=== PATIENT | male | born 1990 | race African-American/Black ===

== ENCOUNTER 2017-02-05 16:06 | Emergency (ER) | payer MEDICARE, MEDICAID ==
[~2017-02-05] VITALS: Ht 180.3 cm; Wt 122.7 kg
[~2017-02-05 16:06] MED LIST: PALI234D IM; PALI3 PO
[2017-02-05] MEDS ORDERED: CITA10TA68 PO (16:15)
[2017-02-05 16:56] LABS: BASOPHILS % (AUTO) 0.4 % (0.0-2.0); EOSINOPHILS % (AUTO) 1.5 % (1.0-6.0); HEMATOCRIT 43.6 % (41-53); HEMOGLOBIN 14.2 g/dL (13.5-17.5); LYMPHOCYTES # (AUTO) 2.1 K/uL (1.0-4.8); LYMPHOCYTES % (AUTO) 15.2 % (22.0-44.0); MEAN CORPUSCULAR HEMOGLOBIN 29.6 pg (26.0-34.0); MEAN CORPUSCULAR HGB CONC 32.6 G/dL (31.0-37.0); MEAN CORPUSCULAR VOLUME 91 fL (80-100); MONOCYTES # (AUTO) 0.8 K/uL (0.1-1.0); MONOCYTES % (AUTO) 5.4 % (2.0-9.0); NEUTROPHILS # (AUTO) 10.9 K/uL (1.8-7.7); NEUTROPHILS % (AUTO) 77.5 % (40.0-70.0); PLATELET COUNT (AUTO) 355 K/uL (150-450); RED CELL DISTRIBUTION WIDTH 13.2 % (11.5-14.5); WHITE BLOOD COUNT (AUTO) 14.1 K/uL (4.5-11.0)
[2017-02-05 17:21] LABS: ANION GAP 9 mmol/L (8-16); CALCIUM, TOTAL 8.9 mg/dL (8.8-10.5); CARBON DIOXIDE 25 mmol/L (22-29); CHLORIDE 100 mmol/L (98-107); CREATININE 0.97 mg/dL (0.60-1.30); GLOMERULAR FILTR. RATE CALC > 60 mL/min (>60); POTASSIUM 3.5 mmol/L (3.5-5.1); SODIUM SERUM 134 mmol/L (136-145); UREA NITROGEN, BLOOD 10 mg/dL (7-18)
[2017-02-05 19:22] VITALS: BP 127/85
[2017-02-05] MEDS ORDERED: RisperiDONE 1 MG TABLET PO ONE (19:45)
== END 2017-02-05 19:44 | disposition home or self-care (01) ==
LOC: EMS 16:08
DX: F25.9 Schizoaffective disorder, unspecified (principal); R44.0 Auditory hallucinations; F31.9 Bipolar disorder, unspecified; F41.9 Anxiety disorder, unspecified; I10 Essential (primary) hypertension; F12.90 Cannabis use, unspecified, uncomplicated; F17.210 Nicotine dependence, cigarettes, uncomplicated; Z91.018 Allergy to other foods
CPT/HCPCS: 36415; 80048; 80307; 85025; 99284; 99406; G0480

== ENCOUNTER 2017-06-02 23:42 | Emergency (ER) | payer SELFPAY ==
[~2017-06-02] VITALS: Ht 177.8 cm; Wt 86.4 kg
[~2017-06-02 23:42] MED LIST changes: +CITA20TA9 PO; -PALI234D IM; -PALI3 PO; +RISP2 PO
[2017-06-03] MEDS ORDERED: RisperiDONE 1 MG TABLET PO ONE (00:30)
[2017-06-03 01:29] VITALS: BP 127/83
== END 2017-06-03 01:35 | disposition home or self-care (01) ==
LOC: EMS 23:43
DX: F25.1 Schizoaffective disorder, depressive type (principal); F17.210 Nicotine dependence, cigarettes, uncomplicated; F12.10 Cannabis abuse, uncomplicated; I10 Essential (primary) hypertension; F41.9 Anxiety disorder, unspecified; Z91.018 Allergy to other foods
CPT/HCPCS: 99284

== ENCOUNTER 2017-09-13 02:51 | Inpatient (IN) | payer SELFPAY ==
[~2017-09-13] VITALS: Ht 182.9 cm; Wt 128.7 kg
[2017-09-13] MEDS ORDERED: ZIPR20CA2 PO (02:58)
[2017-09-13 03:23] LABS: BASOPHILS # (AUTO) 0.05 K/uL (0.00-0.20); BASOPHILS % (AUTO) 0.6 % (0.0-2.0); EOSINOPHILS # (AUTO) 0.61 K/uL (0.00-0.70); HEMATOCRIT 44.5 % (41-53); HEMOGLOBIN 14.9 g/dL (13.5-17.5); LYMPHOCYTES % (AUTO) 34.5 % (22.0-44.0); MEAN CORPUSCULAR HEMOGLOBIN 30.6 pg (26.0-34.0); MEAN CORPUSCULAR HGB CONC 33.4 G/dL (31.0-37.0); MEAN CORPUSCULAR VOLUME 92 fL (80-100); MONOCYTES # (AUTO) 0.9 K/uL (0.1-1.0); MONOCYTES % (AUTO) 10.2 % (2.0-9.0); NEUTROPHILS # (AUTO) 4.2 K/uL (1.8-7.7); NEUTROPHILS % (AUTO) 47.8 % (40.0-70.0); PLATELET COUNT (AUTO) 348 K/uL (150-450); RED BLOOD CELL COUNT(AUTO) 4.85 MIL/uL (4.50-5.90)
[2017-09-13 03:27] LABS: ANION GAP 8 mmol/L (8-16); CALCIUM, TOTAL 8.4 mg/dL (8.8-10.5); CARBON DIOXIDE 31 mmol/L (22-29); CHLORIDE 103 mmol/L (98-107); CREATININE 0.86 mg/dL (0.60-1.30); GLOMERULAR FILTR. RATE CALC > 60 mL/min (>60); GLUCOSE,RANDOM 83 mg/dL (70-110); SODIUM SERUM 142 mmol/L (136-145); UREA NITROGEN, BLOOD 13 mg/dL (7-18)
[2017-09-13 03:35] LABS: ALANINE AMINOTRANSFERASE 55 U/L (12-78); ALBUMIN 3.5 g/dL (3.4-5.0); ALKALINE PHOSPHATASE 66 U/L (46-116); ASPARTATE AMINOTRANSFERASE 46 U/L (15-37); BILIRUBIN,TOTAL 0.4 mg/dL (0.1-1.0); TOTAL PROTEIN, SERUM 7.7 g/dL (6.4-8.2)
[2017-09-13] MEDS ORDERED: HALOPERIDOL 5 MG TABLET PO PRN (09:15)
[2017-09-13] MEDS: ZIPRASIDONE HCL 20 MG CAPSULE PO SCH (18:21)
[2017-09-14 03:00] LABS: AMPHET/METH SCREEN,URINE NEGATIVE (NEGATIVE); BARBITURATE SCREEN, URINE NEGATIVE (NEGATIVE); BENZODIAZEPINES SCREEN,URINE NEGATIVE (NEGATIVE); CANNABINOID SCREEN,URINE POSITIVE (NEGATIVE); COCAINE SCREEN,URINE NEGATIVE (NEGATIVE); METHADONE SCREEN, URINE NEGATIVE (NEGATIVE); OPIATE SCREEN,URINE NEGATIVE (NEGATIVE)
[2017-09-14 03:11] LABS: PHENCYCLIDINE SCREEN,URINE NEGATIVE (NEGATIVE)
[2017-09-14] MEDS: ZIPRASIDONE HCL 20 MG CAPSULE PO SCH ×2 (08:47→17:24)
[2017-09-14] MEDS: CITALOPRAM HYDROBROMIDE 20 MG TABLET PO SCH (09:00)
[2017-09-14 09:31] VITALS: BP 138/79
[2017-09-14 10:02] VITALS: BP 138/79
[2017-09-14 10:12] LABS: CHOL/HDL RATIO 2.4 (4.2-7.3)
[2017-09-14] MEDS ORDERED: INFLUENZA VIRUS VACCINE QVS 2017-18 (3YR+)/PF 60 MCG/0.5 ML SYRINGE IM ONE (14:00)
[2017-09-14 19:08] VITALS: BP 126/79
[2017-09-14] MEDS: ZOLPIDEM TARTRATE 10 MG TABLET PO PRN (23:39)
[2017-09-14] MEDS: LORazepam 2 MG TABLET PO PRN (23:39)
[2017-09-15] MEDS ORDERED: DiphenhydrAMINE HCL 50 MG/ML VIAL IM PRN
[2017-09-15] MEDS ORDERED: LORazepam 2 MG/ML VIAL IM PRN
[2017-09-15 01:46] VITALS: BP 141/87
[2017-09-15] MEDS ORDERED: IBUPROFEN 600 MG TABLET PO PRN (06:45)
[2017-09-15] MEDS ORDERED: ONDANSETRON HCL 4 MG TABLET PO PRN (06:45)
[2017-09-15] MEDS ORDERED: ACETAMINOPHEN 325 MG TABLET PO PRN (06:45)
[2017-09-15] MEDS ORDERED: LOPERAMIDE HCL 2 MG CAPSULE PO PRN (06:45)
[2017-09-15] MEDS ORDERED: MAG HYDROX/AL HYDROX/SIMETH ES 30 ML SUSPENSION UDCUP PO PRN (06:45)
[2017-09-15] MEDS ORDERED: BENZOCAINE/MENTHOL LOZENGE MM PRN (06:45)
[2017-09-15] MEDS ORDERED: ALBUTEROL SULFATE HFA 90 MCG/PUFF 8 GM INHALER IH PRN (06:45)
[2017-09-15] MEDS ORDERED: MAGNESIUM HYDROXIDE SUSPENSION 30 ML UDCUP PO PRN (06:45)
[2017-09-15] MEDS ORDERED: CloNIDine HCL 0.1 MG TABLET PO PRN (06:45)
[2017-09-15] MEDS ORDERED: BACITRACIN 28.4 GM OINTMENT TP PRN (06:45)
[2017-09-15] MEDS ORDERED: PETROLATUM,WHITE 71 GM JELLY TP PRN (06:45)
[2017-09-15] MEDS: ZIPRASIDONE HCL 20 MG CAPSULE PO SCH ×2 (06:47→17:02)
[2017-09-15] MEDS: CITALOPRAM HYDROBROMIDE 20 MG TABLET PO SCH (08:41)
[2017-09-15] MEDS: NICOTINE 21 MG/24 HOUR PATCH TD SCH ×2 (08:43→08:46)
[2017-09-15] MEDS ORDERED: OLANZapine 5 MG TABLET PO SCH (09:00)
[2017-09-15 09:29] VITALS: BP 136/97
[2017-09-15 16:26] VITALS: BP 147/94
[2017-09-15] MEDS: ZOLPIDEM TARTRATE 10 MG TABLET PO PRN (21:37)
[2017-09-15] MEDS: LORazepam 2 MG TABLET PO PRN (21:37)
[2017-09-16 05:52] VITALS: BP 133/78
[2017-09-16] MEDS: ZIPRASIDONE HCL 20 MG CAPSULE PO SCH (06:44)
[2017-09-16 08:24] VITALS: BP 109/74
[2017-09-16] MEDS: CITALOPRAM HYDROBROMIDE 20 MG TABLET PO SCH (08:25)
[2017-09-16] MEDS: NICOTINE 21 MG/24 HOUR PATCH TD SCH (09:00)
[2017-09-17 04:08] LABS: HIV 1-2 SCREEN 4TH GEN W/RFLX Non Reactive (Non Reactive)
== END 2017-09-16 16:45 | disposition home or self-care (01) | DRG 885 ==
LOC: EMS 02:52 → AHU 09-14 08:47 → 3EC 09-14 20:10
DX: F25.1 Schizoaffective disorder, depressive type (principal); R45.851 Suicidal ideations; Z59.0 Homelessness; E66.9 Obesity, unspecified; E78.5 Hyperlipidemia, unspecified; F12.90 Cannabis use, unspecified, uncomplicated; F17.200 Nicotine dependence, unspecified, uncomplicated; F41.9 Anxiety disorder, unspecified; G47.00 Insomnia, unspecified; I10 Essential (primary) hypertension; Z65.3 Problems related to other legal circumstances; Z79.899 Other long term (current) drug therapy; Z71.6 Tobacco abuse counseling; Z71.51 Drug abuse counseling and surveillance of drug abuser; Z91.018 Allergy to other foods
CPT/HCPCS: 80074; 86592; 87389; 87491; 87591; 99285; G0480

== ENCOUNTER 2017-09-17 10:06 | Inpatient (IN) | payer SELFPAY ==
[~2017-09-17] VITALS: Ht 182.9 cm; Wt 130.9 kg
[~2017-09-17 10:06] MED LIST changes: -RISP2 PO; +ZIPR20CA2 PO
[2017-09-17 11:36] VITALS: BP 135/79
[2017-09-17] MEDS ORDERED: HALOPERIDOL 5 MG TABLET PO PRN (12:00)
[2017-09-17] MEDS ORDERED: -PHARMACY VACCINE NOTE- MISC ONE (12:30)
[2017-09-17 13:18] VITALS: BP 140/88
[2017-09-17] MEDS: CITALOPRAM HYDROBROMIDE 20 MG TABLET PO SCH ×2 (14:02→17:15)
[2017-09-17] MEDS: LORazepam 2 MG TABLET PO PRN (14:10)
[2017-09-17 16:00] VITALS: BP 132/84
[2017-09-17] MEDS ORDERED: ZIPRASIDONE HCL 40 MG CAPSULE PO SCH (17:00)
[2017-09-17] MEDS ORDERED: CITALOPRAM HYDROBROMIDE 20 MG TABLET PO SCH (17:00)
[2017-09-17] MEDS: ZIPRASIDONE HCL 40 MG CAPSULE PO SCH (17:16)
[2017-09-18 00:05] VITALS: BP 137/78
[2017-09-18] MEDS: ZIPRASIDONE HCL 40 MG CAPSULE PO SCH ×2 (06:28→16:08)
[2017-09-18 08:07] VITALS: BP 124/72
[2017-09-18 08:14] LABS: BASOPHILS % (AUTO) 1.1 % (0.0-2.0); EOSINOPHILS % (AUTO) 8.4 % (1.0-6.0); HEMATOCRIT 42.6 % (41-53); HEMOGLOBIN 14.5 g/dL (13.5-17.5); LYMPHOCYTES # (AUTO) 3.9 K/uL (1.0-4.8); LYMPHOCYTES % (AUTO) 47.8 % (22.0-44.0); MEAN CORPUSCULAR HEMOGLOBIN 31.3 pg (26.0-34.0); MEAN CORPUSCULAR HGB CONC 34.2 G/dL (31.0-37.0); MEAN CORPUSCULAR VOLUME 92 fL (80-100); MONOCYTES # (AUTO) 0.6 K/uL (0.1-1.0); MONOCYTES % (AUTO) 7.5 % (2.0-9.0); NEUTROPHILS # (AUTO) 2.8 K/uL (1.8-7.7); NEUTROPHILS % (AUTO) 35.2 % (40.0-70.0); PLATELET COUNT (AUTO) 335 K/uL (150-450); RED BLOOD CELL COUNT(AUTO) 4.65 MIL/uL (4.50-5.90); RED CELL DISTRIBUTION WIDTH 14.3 % (11.5-14.5)
[2017-09-18] MEDS ORDERED: MAGNESIUM HYDROXIDE SUSPENSION 30 ML UDCUP PO PRN (08:30)
[2017-09-18] MEDS ORDERED: BACITRACIN 28.4 GM OINTMENT TP PRN (08:30)
[2017-09-18] MEDS ORDERED: BENZOCAINE/MENTHOL LOZENGE MM PRN (08:30)
[2017-09-18] MEDS ORDERED: MAG HYDROX/AL HYDROX/SIMETH ES 30 ML SUSPENSION UDCUP PO PRN (08:30)
[2017-09-18] MEDS ORDERED: ALBUTEROL SULFATE HFA 90 MCG/PUFF 8 GM INHALER IH PRN (08:30)
[2017-09-18] MEDS ORDERED: CloNIDine HCL 0.1 MG TABLET PO PRN (08:30)
[2017-09-18] MEDS ORDERED: ACETAMINOPHEN 325 MG TABLET PO PRN (08:30)
[2017-09-18] MEDS ORDERED: LOPERAMIDE HCL 2 MG CAPSULE PO PRN (08:30)
[2017-09-18] MEDS ORDERED: PETROLATUM,WHITE 71 GM JELLY TP PRN (08:30)
[2017-09-18] MEDS ORDERED: ONDANSETRON HCL 4 MG TABLET PO PRN (08:30)
[2017-09-18 08:48] LABS: ALANINE AMINOTRANSFERASE 42 U/L (12-78); ALBUMIN 3.2 g/dL (3.4-5.0); ALKALINE PHOSPHATASE 56 U/L (46-116); ANION GAP 6 mmol/L (8-16); ASPARTATE AMINOTRANSFERASE 33 U/L (15-37); BILIRUBIN,TOTAL 0.4 mg/dL (0.1-1.0); CALCIUM, TOTAL 8.5 mg/dL (8.8-10.5); CARBON DIOXIDE 29 mmol/L (22-29); CHLORIDE 102 mmol/L (98-107); CHOL/HDL RATIO 2.3 (4.2-7.3); CHOLESTEROL 95 mg/dL (131-200); FREE T4 (FREE THYROXINE) 0.88 ng/dL (0.76-1.46); GLOMERULAR FILTR. RATE CALC > 60 mL/min (>60); GLUCOSE,RANDOM 92 mg/dL (70-110); HDL CHOLESTEROL 42 mg/dL (40-60); LDL CHOL (CALC.) 35 mg/dL (0-130); POTASSIUM 3.9 mmol/L (3.5-5.1); SODIUM SERUM 137 mmol/L (136-145); THYROID STIMULATING HORMONE 0.61 uIU/mL (0.36-3.74); TOTAL PROTEIN, SERUM 7.1 g/dL (6.4-8.2); TRIGLYCERIDES 91 mg/dL (15-150); UREA NITROGEN, BLOOD 11 mg/dL (7-18)
[2017-09-18] MEDS: CITALOPRAM HYDROBROMIDE 20 MG TABLET PO SCH ×2 (09:30→16:08)
[2017-09-18] MEDS: IBUPROFEN 600 MG TABLET PO PRN (12:47)
[2017-09-18 16:00] VITALS: BP 112/66
[2017-09-18] MEDS: LORazepam 2 MG TABLET PO PRN (18:07)
[2017-09-19 06:10] VITALS: BP 118/68
[2017-09-19] MEDS: ZIPRASIDONE HCL 40 MG CAPSULE PO SCH ×2 (06:16→16:27)
[2017-09-19 08:09] VITALS: BP 133/75
[2017-09-19] MEDS: CITALOPRAM HYDROBROMIDE 20 MG TABLET PO SCH ×2 (08:51→16:27)
[2017-09-19 09:05] LABS: APPEARANCE,URINE CLEAR (CLEAR); BILIRUBIN,URINE NEGATIVE (NEGATIVE); GLUCOSE, URINE (UA) NEGATIVE (NEGATIVE); KETONES,URINE NEGATIVE (NEGATIVE); LEUKOCYTE ESTERASE ,URINE NEGATIVE (NEGATIVE); NITRATE,URINE NEGATIVE (NEGATIVE); OCCULT BLOOD,URINE NEGATIVE (NEGATIVE); PROTEIN,URINE NEGATIVE (NEGATIVE); UROBILINOGEN,URINE 0.2 mg/dL (<=1.0)
[2017-09-19 09:06] LABS: AMPHET/METH SCREEN,URINE NEGATIVE (NEGATIVE); BARBITURATE SCREEN, URINE NEGATIVE (NEGATIVE); BENZODIAZEPINES SCREEN,URINE NEGATIVE (NEGATIVE); CANNABINOID SCREEN,URINE NEGATIVE (NEGATIVE); COCAINE SCREEN,URINE NEGATIVE (NEGATIVE); METHADONE SCREEN, URINE NEGATIVE (NEGATIVE); OPIATE SCREEN,URINE NEGATIVE (NEGATIVE)
[2017-09-19 09:07] LABS: PHENCYCLIDINE SCREEN,URINE NEGATIVE (NEGATIVE)
[2017-09-19 16:07] VITALS: BP 129/84
[2017-09-19] MEDS: ZOLPIDEM TARTRATE 10 MG TABLET PO PRN (21:19)
[2017-09-19] MEDS: LORazepam 2 MG TABLET PO PRN (21:20)
[2017-09-20 02:30] VITALS: BP 117/69
[2017-09-20] MEDS: ZIPRASIDONE HCL 40 MG CAPSULE PO SCH ×2 (06:18→17:14)
[2017-09-20] MEDS: CITALOPRAM HYDROBROMIDE 20 MG TABLET PO SCH ×2 (09:09→17:14)
[2017-09-20 10:09] VITALS: BP 142/81
[2017-09-20] MEDS: IBUPROFEN 600 MG TABLET PO PRN (13:05)
[2017-09-20 16:00] VITALS: BP 121/76
[2017-09-21] MEDS: LORazepam 2 MG TABLET PO PRN ×3 (04:59→20:39)
[2017-09-21 06:03] VITALS: BP 116/70
[2017-09-21] MEDS: ZIPRASIDONE HCL 40 MG CAPSULE PO SCH ×2 (06:55→16:26)
[2017-09-21 08:15] VITALS: BP 124/72
[2017-09-21] MEDS: CITALOPRAM HYDROBROMIDE 20 MG TABLET PO SCH ×2 (09:34→16:26)
[2017-09-21 16:33] VITALS: BP 131/84
[2017-09-21] MEDS: ZOLPIDEM TARTRATE 10 MG TABLET PO PRN (20:39)
[2017-09-22 05:38] VITALS: BP 128/83
[2017-09-22] MEDS: ZIPRASIDONE HCL 40 MG CAPSULE PO SCH ×2 (06:22→16:44)
[2017-09-22 08:13] VITALS: BP 119/69
[2017-09-22] MEDS: CITALOPRAM HYDROBROMIDE 20 MG TABLET PO SCH ×2 (10:04→16:44)
[2017-09-22 16:00] VITALS: BP 134/67
[2017-09-22] MEDS: LORazepam 2 MG TABLET PO PRN ×2 (16:44→20:55)
[2017-09-22] MEDS: ZOLPIDEM TARTRATE 10 MG TABLET PO PRN (20:55)
[2017-09-23] MEDS: ZIPRASIDONE HCL 40 MG CAPSULE PO SCH (06:18)
[2017-09-23 06:20] VITALS: BP 123/72
[2017-09-23 08:32] VITALS: BP 123/78
[2017-09-23] MEDS ORDERED: CITALOPRAM HYDROBROMIDE 20 MG TABLET PO SCH (09:00)
== END 2017-09-23 10:50 | disposition home or self-care (01) | DRG 885 ==
LOC: B3A 12:48
PROVIDERS: ADMIT Psychiatry & Neurology Psychiatry
DX: F25.1 Schizoaffective disorder, depressive type (principal); R45.851 Suicidal ideations; Z59.0 Homelessness; F12.90 Cannabis use, unspecified, uncomplicated; I10 Essential (primary) hypertension; G47.33 Obstructive sleep apnea (adult) (pediatric); E78.5 Hyperlipidemia, unspecified; F41.9 Anxiety disorder, unspecified; E66.9 Obesity, unspecified; G47.00 Insomnia, unspecified; F17.200 Nicotine dependence, unspecified, uncomplicated; K59.00 Constipation, unspecified; Z68.39 Body mass index [BMI] 39.0-39.9, adult; Z91.5 Personal history of self-harm; Z91.19 Patient's noncompliance with other medical treatment and regimen; Z91.018 Allergy to other foods; Z81.8 Family history of other mental and behavioral disorders
CPT/HCPCS: 80307; 83036; 84439; 84443; 86592

== ENCOUNTER 2018-01-03 18:21 | Inpatient (IN) | payer SELFPAY ==
[~2018-01-03] VITALS: Ht 193 cm; Wt 129.7 kg
[~2018-01-03 18:21] MED LIST changes: +CITA-106 PO; -CITA20TA9 PO
[2018-01-03] MEDS ORDERED: ESCI10TA PO (18:55)
[2018-01-03] MEDS ORDERED: MIRT15 PO (18:55)
[2018-01-03] MEDS ORDERED: ZIPR40CA2 PO (19:49)
[2018-01-03] MEDS ORDERED: LORazepam 2 MG/ML VIAL IM ONE (20:00)
[2018-01-03] MEDS ORDERED: HALOPERIDOL LACTATE 5 MG/ML VIAL IM ONE (20:00)
[2018-01-03] MEDS ORDERED: DiphenhydrAMINE HCL 50 MG/ML VIAL IM ONE (20:00)
[2018-01-03 20:16] LABS: EOSINOPHILS % (AUTO) 3.1 % (1.0-6.0); HEMATOCRIT 43.7 % (41-53); HEMOGLOBIN 15.3 g/dL (13.5-17.5); LYMPHOCYTES # (AUTO) 2.8 K/uL (1.0-4.8); LYMPHOCYTES % (AUTO) 25.6 % (22.0-44.0); MEAN CORPUSCULAR HEMOGLOBIN 31.2 pg (26.0-34.0); MEAN CORPUSCULAR HGB CONC 35.1 G/dL (31.0-37.0); MEAN CORPUSCULAR VOLUME 89 fL (80-100); MONOCYTES # (AUTO) 0.9 K/uL (0.1-1.0); MONOCYTES % (AUTO) 8.1 % (2.0-9.0); NEUTROPHILS # (AUTO) 6.9 K/uL (1.8-7.7); NEUTROPHILS % (AUTO) 62.2 % (40.0-70.0); PLATELET COUNT (AUTO) 442 K/uL (150-450); RED BLOOD CELL COUNT(AUTO) 4.91 MIL/uL (4.50-5.90); RED CELL DISTRIBUTION WIDTH 13.6 % (11.5-14.5)
[2018-01-03 20:26] LABS: ANION GAP 5 mmol/L (8-16); CALCIUM, TOTAL 8.7 mg/dL (8.8-10.5); CARBON DIOXIDE 31 mmol/L (22-29); CHLORIDE 102 mmol/L (98-107); CREATININE 0.84 mg/dL (0.60-1.30); GLOMERULAR FILTR. RATE CALC > 60 mL/min (>60); GLUCOSE,RANDOM 91 mg/dL (70-110); POTASSIUM 3.8 mmol/L (3.5-5.1); SODIUM SERUM 138 mmol/L (136-145); UREA NITROGEN, BLOOD 10 mg/dL (7-18)
[2018-01-03 20:30] LABS: HEMOGLOBIN A1C 5.6 % (4.5-6.2)
[2018-01-03 20:41] LABS: ALANINE AMINOTRANSFERASE 89 U/L (12-78); ALBUMIN 3.7 g/dL (3.4-5.0); ALKALINE PHOSPHATASE 67 U/L (46-116); ASPARTATE AMINOTRANSFERASE 77 U/L (15-37); BILIRUBIN,TOTAL 0.5 mg/dL (0.1-1.0); CHOL/HDL RATIO 2.2 (4.2-7.3); CHOLESTEROL 93 mg/dL (131-200); FREE T4 (FREE THYROXINE) 1.12 ng/dL (0.76-1.46); HDL CHOLESTEROL 42 mg/dL (40-60); LDL CHOL (CALC.) 22 mg/dL (0-130); TOTAL PROTEIN, SERUM 7.9 g/dL (6.4-8.2); TRIGLYCERIDES 143 mg/dL (15-150)
[2018-01-03 20:46] LABS: AMPHET/METH SCREEN,URINE NEGATIVE (NEGATIVE); BARBITURATE SCREEN, URINE NEGATIVE (NEGATIVE); BENZODIAZEPINES SCREEN,URINE NEGATIVE (NEGATIVE); CANNABINOID SCREEN,URINE NEGATIVE (NEGATIVE); COCAINE SCREEN,URINE NEGATIVE (NEGATIVE); METHADONE SCREEN, URINE NEGATIVE (NEGATIVE); OPIATE SCREEN,URINE NEGATIVE (NEGATIVE)
[2018-01-03 20:49] LABS: PHENCYCLIDINE SCREEN,URINE NEGATIVE (NEGATIVE)
[2018-01-04 02:18] VITALS: BP 139/96
[2018-01-04] MEDS ORDERED: PNEUMOCOCCAL VACCINE POLYVALENT 0.5 ML VIAL [PPSV23] IM ONE (03:45)
[2018-01-04] MEDS ORDERED: DiphenhydrAMINE HCL 50 MG/ML VIAL IM ONE ×2 (07:30→13:30)
[2018-01-04] MEDS ORDERED: LORazepam 2 MG/ML VIAL IM ONE ×2 (07:30→13:30)
[2018-01-04] MEDS ORDERED: HALOPERIDOL LACTATE 5 MG/ML VIAL IM ONE ×2 (07:30→13:30)
[2018-01-04 08:00] VITALS: BP 134/87
[2018-01-04] MEDS ORDERED: LOPERAMIDE HCL 2 MG CAPSULE PO PRN (09:15)
[2018-01-04] MEDS ORDERED: ACETAMINOPHEN 325 MG TABLET PO PRN (09:15)
[2018-01-04] MEDS ORDERED: CloNIDine HCL 0.1 MG TABLET PO PRN (09:15)
[2018-01-04] MEDS ORDERED: ONDANSETRON HCL 4 MG TABLET PO PRN (09:15)
[2018-01-04] MEDS ORDERED: BENZOCAINE/MENTHOL LOZENGE MM PRN (09:15)
[2018-01-04] MEDS ORDERED: BACITRACIN 28.4 GM OINTMENT TP PRN (09:15)
[2018-01-04] MEDS ORDERED: MAGNESIUM HYDROXIDE SUSPENSION 30 ML UDCUP PO PRN (09:15)
[2018-01-04] MEDS ORDERED: ALBUTEROL SULFATE HFA 90 MCG/PUFF 8 GM INHALER IH PRN (09:15)
[2018-01-04] MEDS ORDERED: PETROLATUM,WHITE 71 GM JELLY TP PRN (09:15)
[2018-01-04] MEDS: HALOPERIDOL 5 MG TABLET PO PRN ×2 (12:17→16:30)
[2018-01-04] MEDS: LORazepam 2 MG TABLET PO PRN ×2 (12:17→16:30)
[2018-01-04 16:00] VITALS: BP 125/75
[2018-01-04] MEDS: ZIPRASIDONE HCL 40 MG CAPSULE PO SCH (16:30)
[2018-01-04] MEDS: MIRTAZAPINE 15 MG TABLET PO SCH (20:22)
[2018-01-04] MEDS: ZOLPIDEM TARTRATE 10 MG TABLET PO PRN (20:22)
[2018-01-05 00:07] VITALS: BP 140/90
[2018-01-05] MEDS: HALOPERIDOL 5 MG TABLET PO PRN (00:09)
[2018-01-05] MEDS: LORazepam 2 MG TABLET PO PRN ×3 (00:09→13:59)
[2018-01-05] MEDS: ZIPRASIDONE HCL 40 MG CAPSULE PO SCH ×2 (06:34→16:26)
[2018-01-05 08:14] VITALS: BP 134/98
[2018-01-05] MEDS: ESCITALOPRAM OXALATE 10 MG TABLET PO SCH (08:16)
[2018-01-05] MEDS: CHOLECALCIFEROL (VIT D3) 1,000 UNITS TABLET PO SCH (08:16)
[2018-01-05] MEDS: PSYLLIUM SEED ORANGE SF 5.8 GM/PACKET PO SCH (09:45)
[2018-01-05] MEDS ORDERED: DiphenhydrAMINE HCL 50 MG/ML VIAL ONE (15:34)
[2018-01-05] MEDS ORDERED: HALOPERIDOL LACTATE 5 MG/ML VIAL ONE (15:34)
[2018-01-05] MEDS ORDERED: LORazepam 2 MG/ML VIAL ONE (15:34)
[2018-01-05] MEDS ORDERED: DiphenhydrAMINE HCL 50 MG/ML VIAL IM ONE ×2 (15:45→17:30)
[2018-01-05] MEDS ORDERED: LORazepam 2 MG/ML VIAL IM ONE ×2 (15:45→17:30)
[2018-01-05] MEDS ORDERED: HALOPERIDOL LACTATE 5 MG/ML VIAL IM ONE ×2 (15:45→17:30)
[2018-01-05 16:21] VITALS: BP 123/81
[2018-01-05 18:30] VITALS: BP 135/79
[2018-01-05] MEDS: MIRTAZAPINE 15 MG TABLET PO SCH (20:32)
[2018-01-06] MEDS: HALOPERIDOL 5 MG TABLET PO PRN ×3 (00:47→13:53)
[2018-01-06] MEDS: LORazepam 2 MG TABLET PO PRN ×3 (00:47→13:53)
[2018-01-06] MEDS: ZOLPIDEM TARTRATE 10 MG TABLET PO PRN (00:47)
[2018-01-06 00:48] VITALS: BP 134/83
[2018-01-06] MEDS: ZIPRASIDONE HCL 40 MG CAPSULE PO SCH (06:05)
[2018-01-06 07:59] VITALS: BP 140/76
[2018-01-06] MEDS: PSYLLIUM SEED ORANGE SF 5.8 GM/PACKET PO SCH (08:16)
[2018-01-06] MEDS: ESCITALOPRAM OXALATE 10 MG TABLET PO SCH (08:16)
[2018-01-06] MEDS: CHOLECALCIFEROL (VIT D3) 1,000 UNITS TABLET PO SCH (08:16)
[2018-01-06] MEDS ORDERED: HALOPERIDOL LACTATE 5 MG/ML VIAL IM ONE (09:15)
[2018-01-06] MEDS ORDERED: DiphenhydrAMINE HCL 50 MG/ML VIAL IM ONE ×2 (09:15→15:45)
[2018-01-06] MEDS ORDERED: LORazepam 2 MG/ML VIAL IM ONE ×2 (09:15→15:45)
[2018-01-06] MEDS ORDERED: DiphenhydrAMINE HCL 50 MG/ML VIAL ONE (09:16)
[2018-01-06] MEDS ORDERED: HALOPERIDOL LACTATE 5 MG/ML VIAL ONE (09:16)
[2018-01-06 16:11] VITALS: BP 130/78
[2018-01-06] MEDS: ZIPRASIDONE HCL 60 MG CAPSULE PO SCH (16:52)
[2018-01-06] MEDS: MIRTAZAPINE 15 MG TABLET PO SCH (20:14)
[2018-01-07] MEDS: MAG HYDROX/AL HYDROX/SIMETH ES 30 ML SUSPENSION UDCUP PO PRN (00:02)
[2018-01-07 05:17] VITALS: BP 128/83
[2018-01-07] MEDS: HALOPERIDOL 5 MG TABLET PO PRN (05:36)
[2018-01-07] MEDS: LORazepam 2 MG TABLET PO PRN ×3 (05:36→16:01)
[2018-01-07] MEDS: ZIPRASIDONE HCL 60 MG CAPSULE PO SCH ×2 (06:29→16:01)
[2018-01-07 07:35] LABS: BASOPHILS % (AUTO) 0.4 % (0.0-2.0); EOSINOPHILS % (AUTO) 4.4 % (1.0-6.0); HEMATOCRIT 45.2 % (41-53); HEMOGLOBIN 15.5 g/dL (13.5-17.5); LYMPHOCYTES # (AUTO) 5.3 K/uL (1.0-4.8); LYMPHOCYTES % (AUTO) 46.4 % (22.0-44.0); MEAN CORPUSCULAR HEMOGLOBIN 30.8 pg (26.0-34.0); MEAN CORPUSCULAR HGB CONC 34.3 G/dL (31.0-37.0); MEAN CORPUSCULAR VOLUME 90 fL (80-100); MONOCYTES # (AUTO) 0.9 K/uL (0.1-1.0); MONOCYTES % (AUTO) 7.6 % (2.0-9.0); NEUTROPHILS # (AUTO) 4.7 K/uL (1.8-7.7); NEUTROPHILS % (AUTO) 41.2 % (40.0-70.0); PLATELET COUNT (AUTO) 355 K/uL (150-450); RED BLOOD CELL COUNT(AUTO) 5.04 MIL/uL (4.50-5.90); RED CELL DISTRIBUTION WIDTH 13.5 % (11.5-14.5)
[2018-01-07 07:44] LABS: ANION GAP 8 mmol/L (8-16); CALCIUM, TOTAL 8.9 mg/dL (8.8-10.5); CARBON DIOXIDE 30 mmol/L (22-29); CHLORIDE 101 mmol/L (98-107); CREATININE 0.72 mg/dL (0.60-1.30); GLOMERULAR FILTR. RATE CALC > 60 mL/min (>60); GLUCOSE,RANDOM 126 mg/dL (70-110); POTASSIUM 4.6 mmol/L (3.5-5.1); SODIUM SERUM 139 mmol/L (136-145); UREA NITROGEN, BLOOD 14 mg/dL (7-18)
[2018-01-07 08:13] VITALS: BP 142/75
[2018-01-07] MEDS: PSYLLIUM SEED ORANGE SF 5.8 GM/PACKET PO SCH (08:17)
[2018-01-07] MEDS: ESCITALOPRAM OXALATE 10 MG TABLET PO SCH (08:17)
[2018-01-07] MEDS: CHOLECALCIFEROL (VIT D3) 1,000 UNITS TABLET PO SCH (08:17)
[2018-01-07] MEDS ORDERED: LORazepam 2 MG/ML VIAL ONE (08:27)
[2018-01-07] MEDS ORDERED: HALOPERIDOL LACTATE 5 MG/ML VIAL ONE (08:28)
[2018-01-07] MEDS ORDERED: DiphenhydrAMINE HCL 50 MG/ML VIAL ONE (08:28)
[2018-01-07] MEDS ORDERED: DiphenhydrAMINE HCL 50 MG/ML VIAL IM ONE ×3 (08:30→20:00)
[2018-01-07] MEDS ORDERED: LORazepam 2 MG/ML VIAL IM ONE ×3 (08:30→20:00)
[2018-01-07] MEDS ORDERED: HALOPERIDOL LACTATE 5 MG/ML VIAL IM ONE ×2 (08:30→10:30)
[2018-01-07] MEDS: DIVALPROEX SODIUM 500 MG DR TABLET PO SCH ×3 (09:00→20:02)
[2018-01-07 09:15] VITALS: BP 127/72
[2018-01-07 10:58] VITALS: BP 139/73
[2018-01-07] MEDS: MAGNESIUM OXIDE 400 MG TABLET PO SCH (11:38)
[2018-01-07 16:02] VITALS: BP 111/66
[2018-01-08] MEDS: MAG HYDROX/AL HYDROX/SIMETH ES 30 ML SUSPENSION UDCUP PO PRN (03:00)
[2018-01-08] MEDS: IBUPROFEN 600 MG TABLET PO PRN (03:00)
[2018-01-08] MEDS: ZIPRASIDONE HCL 60 MG CAPSULE PO SCH ×2 (06:30→17:34)
[2018-01-08 08:04] VITALS: BP 134/80
[2018-01-08] MEDS: MAGNESIUM OXIDE 400 MG TABLET PO SCH (09:26)
[2018-01-08] MEDS: LORazepam 2 MG TABLET PO PRN ×2 (09:26→13:26)
[2018-01-08] MEDS: CHOLECALCIFEROL (VIT D3) 1,000 UNITS TABLET PO SCH (09:26)
[2018-01-08] MEDS: DIVALPROEX SODIUM 500 MG DR TABLET PO SCH ×2 (09:26→20:09)
[2018-01-08] MEDS: PSYLLIUM SEED ORANGE SF 5.8 GM/PACKET PO SCH (09:27)
[2018-01-08] MEDS ORDERED: BENZOCAINE 10% 7 GM GEL TP PRN (12:45)
[2018-01-08] MEDS ORDERED: DiphenhydrAMINE HCL 50 MG/ML VIAL IM ONE ×2 (16:00→23:30)
[2018-01-08] MEDS ORDERED: DiphenhydrAMINE HCL 50 MG/ML VIAL ONE (16:00)
[2018-01-08 16:20] VITALS: BP 139/72
[2018-01-08] MEDS ORDERED: LORazepam 2 MG/ML VIAL ONE (23:29)
[2018-01-08] MEDS ORDERED: HALOPERIDOL LACTATE 5 MG/ML VIAL IM ONE (23:30)
[2018-01-08] MEDS ORDERED: LORazepam 2 MG/ML VIAL IM ONE (23:30)
[2018-01-09 00:30] VITALS: BP 138/75
[2018-01-09] MEDS: ZIPRASIDONE HCL 60 MG CAPSULE PO SCH (06:44)
[2018-01-09] MEDS: PSYLLIUM SEED ORANGE SF 5.8 GM/PACKET PO SCH (08:05)
[2018-01-09] MEDS: MAGNESIUM OXIDE 400 MG TABLET PO SCH (08:05)
[2018-01-09] MEDS: CHOLECALCIFEROL (VIT D3) 1,000 UNITS TABLET PO SCH (08:05)
[2018-01-09] MEDS: DIVALPROEX SODIUM 500 MG DR TABLET PO SCH ×2 (08:05→21:00)
[2018-01-09 08:11] VITALS: BP 139/72
[2018-01-09] MEDS ORDERED: LORazepam 2 MG/ML VIAL ONE (14:23)
[2018-01-09] MEDS ORDERED: HALOPERIDOL LACTATE 5 MG/ML VIAL ONE (14:23)
[2018-01-09] MEDS ORDERED: DiphenhydrAMINE HCL 50 MG/ML VIAL ONE (14:23)
[2018-01-09] MEDS ORDERED: DiphenhydrAMINE HCL 50 MG/ML VIAL IM ONE ×3 (15:00→19:30)
[2018-01-09] MEDS ORDERED: HALOPERIDOL LACTATE 5 MG/ML VIAL IM ONE ×3 (15:00→19:30)
[2018-01-09] MEDS ORDERED: LORazepam 2 MG/ML VIAL IM ONE ×3 (15:00→19:30)
[2018-01-09 16:05] VITALS: BP 115/83
[2018-01-09] MEDS: LORazepam 2 MG TABLET PO PRN (16:34)
[2018-01-09] MEDS: OLANZapine 10 MG TABLET PO SCH (21:00)
[2018-01-10 06:30] VITALS: BP 124/71
[2018-01-10] MEDS: DIVALPROEX SODIUM 500 MG DR TABLET PO SCH ×2 (08:04→20:46)
[2018-01-10] MEDS: CHOLECALCIFEROL (VIT D3) 1,000 UNITS TABLET PO SCH (08:05)
[2018-01-10] MEDS: MAGNESIUM OXIDE 400 MG TABLET PO SCH (08:05)
[2018-01-10] MEDS: OLANZapine 10 MG TABLET PO SCH ×2 (08:05→20:46)
[2018-01-10] MEDS: PSYLLIUM SEED ORANGE SF 5.8 GM/PACKET PO SCH (08:05)
[2018-01-10 08:10] VITALS: BP 125/70
[2018-01-10 08:32] LABS: ANION GAP 5 mmol/L (8-16); CALCIUM, TOTAL 8.8 mg/dL (8.8-10.5); CARBON DIOXIDE 31 mmol/L (22-29); CHLORIDE 102 mmol/L (98-107); CREATININE 0.77 mg/dL (0.60-1.30); GLOMERULAR FILTR. RATE CALC > 60 mL/min (>60); GLUCOSE,RANDOM 93 mg/dL (70-110); SODIUM SERUM 138 mmol/L (136-145); UREA NITROGEN, BLOOD 8 mg/dL (7-18)
[2018-01-10 16:05] VITALS: BP 118/84
[2018-01-10] MEDS: LORazepam 2 MG TABLET PO PRN (16:31)
[2018-01-10 17:14] VITALS: BP 131/87
[2018-01-10] MEDS: IBUPROFEN 600 MG TABLET PO PRN (17:18)
[2018-01-10] MEDS: ZOLPIDEM TARTRATE 10 MG TABLET PO PRN (20:46)
[2018-01-11 01:38] VITALS: BP 148/80
[2018-01-11 08:02] VITALS: BP 132/78
[2018-01-11] MEDS: MAGNESIUM OXIDE 400 MG TABLET PO SCH (08:15)
[2018-01-11] MEDS: DIVALPROEX SODIUM 500 MG DR TABLET PO SCH (08:15)
[2018-01-11] MEDS: CHOLECALCIFEROL (VIT D3) 1,000 UNITS TABLET PO SCH (08:17)
[2018-01-11] MEDS: OLANZapine 10 MG TABLET PO SCH (08:17)
[2018-01-11] MEDS: PSYLLIUM SEED ORANGE SF 5.8 GM/PACKET PO SCH (08:17)
[2018-01-11 11:42] VITALS: BP 156/86
[2018-01-11] MEDS ORDERED: OLAN10TA3 PO (12:14)
[2018-01-11] MEDS ORDERED: DIVA500T35 PO (12:16)
[2018-01-11] MEDS ORDERED: MAGOX PEG (12:20)
[2018-01-11] MEDS ORDERED: VITAD1000 PO (12:20)
[2018-01-11 12:42] VITALS: BP 124/83
[2018-01-11] MEDS ORDERED: HALOPERIDOL LACTATE 5 MG/ML VIAL IM ONE (12:45)
[2018-01-11] MEDS ORDERED: LORazepam 2 MG/ML VIAL IM ONE (12:45)
[2018-01-11] MEDS ORDERED: DiphenhydrAMINE HCL 50 MG/ML VIAL IM ONE (12:45)
== END 2018-01-11 13:05 | DRG 885 ==
LOC: EMS 18:22 → B3A 01-04 00:03
DX: F25.1 Schizoaffective disorder, depressive type (principal); Z59.0 Homelessness; E55.9 Vitamin D deficiency, unspecified; E66.9 Obesity, unspecified; F12.90 Cannabis use, unspecified, uncomplicated; F41.9 Anxiety disorder, unspecified; I10 Essential (primary) hypertension; F15.90 Other stimulant use, unspecified, uncomplicated; F14.90 Cocaine use, unspecified, uncomplicated; G47.00 Insomnia, unspecified; F17.200 Nicotine dependence, unspecified, uncomplicated; Z79.899 Other long term (current) drug therapy
CPT/HCPCS: 83036; 83735; 84100; 84439; 84443; 90471; 96372; 99285; G0480; J1200; J1630; J2060; J3230

== ENCOUNTER 2022-10-26 22:58 | Emergency (ER) | payer SELFPAY ==
[~2022-10-26] VITALS: Ht 182.9 cm; Wt 151.0 kg
[~2022-10-26 22:58] MED LIST changes: -CITA-106 PO; +DIVA-111 PO; +METF-1211 PO; +MIRT-89 PO; +OLAN10 PO; -ZIPR20CA2 PO
[2022-10-26 23:19] VITALS: BP 131/78
[2022-10-26 23:31] LABS: GLUCOMETER DEV NAME(LOC) ERT.5; GLUCOSE,POINT OF CARE 128 MG/DL (70-110)
[2022-10-26 23:46] LABS: AMPHET/METH SCREEN,URINE NEGATIVE (NEGATIVE); BARBITURATE SCREEN, URINE NEGATIVE (NEGATIVE); BENZODIAZEPINES SCREEN,URINE NEGATIVE (NEGATIVE); CANNABINOID SCREEN,URINE POSITIVE (NEGATIVE); COCAINE SCREEN,URINE NEGATIVE (NEGATIVE); METHADONE SCREEN, URINE NEGATIVE (NEGATIVE); OPIATE SCREEN,URINE NEGATIVE (NEGATIVE); PHENCYCLIDINE SCREEN,URINE NEGATIVE (NEGATIVE)
[2022-10-27 00:15] LABS: EOSINOPHILS % (AUTO) 6.9 % (1.0-6.0); HEMATOCRIT 43.4 % (41-53); HEMOGLOBIN 14.7 g/dL (13.5-17.5); LYMPHOCYTES # (AUTO) 4.9 K/uL (1.0-4.8); MEAN CORPUSCULAR HEMOGLOBIN 30.9 pg (26.0-34.0); MEAN CORPUSCULAR HGB CONC 33.8 G/dL (31.0-37.0); MEAN CORPUSCULAR VOLUME 91 fL (80-100); MONOCYTES # (AUTO) 0.8 K/uL (0.1-1.0); MONOCYTES % (AUTO) 5.4 % (2.0-9.0); NEUTROPHILS # (AUTO) 7.9 K/uL (1.8-7.7); NEUTROPHILS % (AUTO) 53.7 % (40.0-70.0); PLATELET COUNT (AUTO) 346 K/uL (150-450); RED BLOOD CELL COUNT(AUTO) 4.75 MIL/uL (4.50-5.90); RED CELL DISTRIBUTION WIDTH 15.5 % (11.5-14.5)
[2022-10-27 00:17] LABS: ANION GAP 9 mmol/L (8-16); CALCIUM, TOTAL 8.5 mg/dL (8.8-10.5); CARBON DIOXIDE 27 mmol/L (22-29); CHLORIDE 101 mmol/L (98-107); CREATININE 0.83 mg/dL (0.60-1.30); GLOMERULAR FILTR. RATE CALC > 60 mL/min (>60); GLUCOSE,RANDOM 154 mg/dL (70-110); POTASSIUM 3.6 mmol/L (3.5-5.1); SODIUM SERUM 137 mmol/L (136-145); UREA NITROGEN, BLOOD 11 mg/dL (7-18)
[2022-10-27 00:23] LABS: ALANINE AMINOTRANSFERASE 47 U/L (12-78); ALBUMIN 3.5 g/dL (3.4-5.0); ALKALINE PHOSPHATASE 79 U/L (46-116); ASPARTATE AMINOTRANSFERASE 26 U/L (15-37); BILIRUBIN,TOTAL 0.3 mg/dL (0.1-1.0)
[2022-10-27 00:26] LABS: VALPROIC ACID < 3 mcg/mL (50-100)
[2022-10-27] MEDS ORDERED: OLAN5TAB52 PO (02:14)
[2022-10-27] MEDS ORDERED: OLANZapine 5 MG TABLET PO ONE (02:15)
== END 2022-10-27 02:57 | disposition home or self-care (01) ==
LOC: EMS 23:00
DX: F41.9 Anxiety disorder, unspecified (principal); F31.9 Bipolar disorder, unspecified; E11.9 Type 2 diabetes mellitus without complications; I10 Essential (primary) hypertension; F20.9 Schizophrenia, unspecified; F17.210 Nicotine dependence, cigarettes, uncomplicated; F12.90 Cannabis use, unspecified, uncomplicated; Z91.018 Allergy to other foods; Z76.0 Encounter for issue of repeat prescription; Z91.14 Patient's other noncompliance with medication regimen
CPT/HCPCS: 99284; 80053; 80164; 82962; 85025; 36415; 80307 ×2; G0480

== ENCOUNTER 2023-07-09 11:14 | Inpatient (IN) | payer MEDICARE ==
[~2023-07-09] VITALS: Ht 182.9 cm; Wt 127.0 kg
[~2023-07-09 11:14] MED LIST changes: +OLAN5TAB52 PO
[2023-07-09 11:30] VITALS: BP 104/64; PULSE 123; RESP 18; TEMP 98
[2023-07-09] MEDS ORDERED: OLAN10TA74 PO (12:20)
[2023-07-09] MEDS ORDERED: MIRT-89 PO (12:20)
[2023-07-09] MEDS ORDERED: DIVA-112 PO (12:22)
[2023-07-09] MEDS ORDERED: METF-1211 PO (12:27)
[2023-07-09] MEDS ORDERED: HALOPERIDOL 5 MG TABLET PO PRN (14:30)
[2023-07-09] MEDS ORDERED: INFLUENZA VIRUS VACCINE QVS 2023-24 (6MO+)/PF 60 MCG/0.5 ML SYRINGE IM. ONE (16:00)
[2023-07-10] MEDS ORDERED: NICOTINE 14 MG/24 HOUR PATCH TD PRN (00:15)
[2023-07-10] MEDS ORDERED: GuaiFENesin/D-METHORPHAN [SUGAR-FREE] 200-20MG/10 ML SYRUP UDCUP PO PRN (00:15)
[2023-07-10] MEDS ORDERED: DOCUSATE SODIUM 100 MG CAPSULE PO PRN (00:15)
[2023-07-10] MEDS ORDERED: PETROLATUM,WHITE 28 GM JELLY TP PRN (00:15)
[2023-07-10] MEDS ORDERED: ALBUTEROL SULFATE HFA 90 MCG/PUFF 8 GM INHALER IH PRN (00:15)
[2023-07-10] MEDS ORDERED: MAG HYDROX/ALUMINUM HYD/SIMETH ES 30 ML SUSPENSION UDCUP PO PRN (00:15)
[2023-07-10] MEDS ORDERED: MAGNESIUM HYDROXIDE SUSPENSION 30 ML UDCUP PO PRN (00:15)
[2023-07-10] MEDS ORDERED: ONDANSETRON HCL 4 MG TABLET PO PRN (00:15)
[2023-07-10] MEDS ORDERED: CloNIDine HCL 0.1 MG TABLET PO PRN (00:15)
[2023-07-10] MEDS ORDERED: LOPERAMIDE HCL 2 MG CAPSULE PO PRN (00:15)
[2023-07-10] MEDS ORDERED: ACETAMINOPHEN 325 MG TABLET PO PRN (00:15)
[2023-07-10] MEDS: IBUPROFEN 400 MG TABLET PO PRN ×2 (00:32→20:30)
[2023-07-10] MEDS: ZOLPIDEM TARTRATE 10 MG TABLET PO PRN (00:32)
[2023-07-10 00:34] VITALS: BP 133/74; PULSE 75; RESP 20; TEMP 98; O2SAT 99
[2023-07-10] MEDS ORDERED: PNEUMOCOCCAL VACCINE POLYVALENT 0.5 ML SYRINGE [PPSV23] IM. ONE (00:45)
[2023-07-10 08:13] LABS: BASOPHILS % (AUTO) 0.8 % (0.0-2.0); EOSINOPHILS % (AUTO) 9.9 % (1.0-6.0); HEMATOCRIT 40.7 % (41-53); LYMPHOCYTES # (AUTO) 2.3 K/uL (1.0-4.8); LYMPHOCYTES % (AUTO) 28.5 % (22.0-44.0); MEAN CORPUSCULAR HEMOGLOBIN 31.2 pg (26.0-34.0); MEAN CORPUSCULAR HGB CONC 34.4 G/dL (31.0-37.0); MEAN CORPUSCULAR VOLUME 91 fL (80-100); MONOCYTES % (AUTO) 12.2 % (2.0-9.0); NEUTROPHILS % (AUTO) 48.6 % (40.0-70.0); PLATELET COUNT (AUTO) 296 K/uL (150-450); RED BLOOD CELL COUNT(AUTO) 4.49 MIL/uL (4.50-5.90); WHITE BLOOD COUNT (AUTO) 8.2 K/uL (4.5-11.0)
[2023-07-10 08:15] LABS: ALANINE AMINOTRANSFERASE 26 U/L (12-78); ALBUMIN 3.1 g/dL (3.4-5.0); ALKALINE PHOSPHATASE 56 U/L (46-116); ANION GAP 7 mmol/L (8-16); ASPARTATE AMINOTRANSFERASE 26 U/L (15-37); BILIRUBIN,TOTAL 0.3 mg/dL (0.1-1.0); CALCIUM, TOTAL 8.9 mg/dL (8.8-10.5); CARBON DIOXIDE 32 mmol/L (22-29); CHLORIDE 97 mmol/L (98-107); CHOL/HDL RATIO 2.6 (4.2-7.3); CHOLESTEROL 97 mg/dL (131-200); FREE T4 (FREE THYROXINE) 1.44 ng/dL (0.76-1.46); GLOMERULAR FILTR. RATE CALC > 60 mL/min (>60); GLUCOSE,RANDOM 143 mg/dL (70-110); HDL CHOLESTEROL 38 mg/dL (40-60); LDL CHOL (CALC.) 24 mg/dL (0-130); POTASSIUM 3.9 mmol/L (3.5-5.1); SODIUM SERUM 136 mmol/L (136-145); T4 (THYROXINE) 9.6 mcg/dL (4.7-13.3); TOTAL PROTEIN, SERUM 7.8 g/dL (6.4-8.2); TRIGLYCERIDES 174 mg/dL (15-150); UREA NITROGEN, BLOOD 11 mg/dL (7-18)
[2023-07-10] MEDS: LORazepam 2 MG TABLET PO PRN ×2 (08:24→16:19)
[2023-07-10 08:35] VITALS: BP 130/79; PULSE 100; RESP 18; TEMP 97.9; O2SAT 98
[2023-07-10] MEDS: DIVALPROEX SODIUM 500 MG DR TABLET PO SCH (20:01)
[2023-07-10] MEDS: OLANZapine 10 MG TABLET PO SCH (20:02)
[2023-07-10] MEDS: MIRTAZAPINE 15 MG TABLET PO SCH (20:02)
[2023-07-10 20:07] VITALS: BP 119/76; PULSE 98; RESP 19; TEMP 97.8; O2SAT 100
[2023-07-10 20:11] LABS: GLUCOMETER DEV NAME(LOC) POC.BV; POC SARS-COV2 AG, FIA NEGATIVE (NEGATIVE)
[2023-07-10 20:30] VITALS: RESP 19
[2023-07-10 21:30] VITALS: RESP 18
[2023-07-11] MEDS: MetFORMIN HCL 500 MG TABLET PO SCH ×2 (06:21→17:05)
[2023-07-11 08:22] VITALS: BP 112/69; PULSE 91; RESP 17; TEMP 97.9; O2SAT 99
[2023-07-11] MEDS: BENZOCAINE/MENTHOL/ZINC CL 20% 11.9 GM GEL TP PRN (13:19)
[2023-07-11] MEDS: LORazepam 2 MG TABLET PO PRN ×2 (17:05→21:05)
[2023-07-11 20:13] VITALS: BP 129/79; PULSE 95; RESP 19; TEMP 97.5; O2SAT 100
[2023-07-11] MEDS: MIRTAZAPINE 15 MG TABLET PO SCH (20:30)
[2023-07-11] MEDS: DIVALPROEX SODIUM 500 MG DR TABLET PO SCH (20:30)
[2023-07-11] MEDS: OLANZapine 10 MG TABLET PO SCH (20:30)
[2023-07-11] MEDS: ZOLPIDEM TARTRATE 10 MG TABLET PO PRN (20:32)
[2023-07-12] MEDS: BENZOCAINE/MENTHOL/ZINC CL 20% 11.9 GM GEL TP PRN (06:08)
[2023-07-12] MEDS: MetFORMIN HCL 500 MG TABLET PO SCH ×2 (06:08→16:17)
[2023-07-12 08:38] VITALS: BP 128/83; PULSE 96; RESP 18; TEMP 97.6; O2SAT 100
[2023-07-12] MEDS: LORazepam 2 MG TABLET PO PRN (09:24)
[2023-07-12] MEDS: MIRTAZAPINE 15 MG TABLET PO SCH (20:05)
[2023-07-12] MEDS: DIVALPROEX SODIUM 500 MG DR TABLET PO SCH (20:05)
[2023-07-12] MEDS: OLANZapine 10 MG TABLET PO SCH (20:05)
[2023-07-12 20:11] VITALS: BP 136/70; PULSE 102; RESP 20; TEMP 97.8; O2SAT 99
[2023-07-13] MEDS: MetFORMIN HCL 500 MG TABLET PO SCH (06:31)
[2023-07-13 08:13] VITALS: BP 115/70; PULSE 90; RESP 18; TEMP 98; O2SAT 98
[2023-07-13] MEDS ORDERED: OLAN10TA74 PO (08:39)
[2023-07-13] MEDS ORDERED: DIVA-112 PO (08:39)
[2023-07-13] MEDS ORDERED: MIRT-89 PO (08:39)
[2023-07-13] MEDS ORDERED: METF-1211 PO (10:01)
== END 2023-07-13 15:30 | DRG 885 ==
LOC: B3A 15:06
PROVIDERS: ADMIT Psychiatry & Neurology Psychiatry; ATTEND Psychiatry & Neurology Psychiatry
DX: F25.0 Schizoaffective disorder, bipolar type (principal); Z59.00 Homelessness unspecified; R45.851 Suicidal ideations; I10 Essential (primary) hypertension; E11.9 Type 2 diabetes mellitus without complications; E66.3 Overweight; F32.A Depression, unspecified; E78.5 Hyperlipidemia, unspecified; Z20.822 Contact with and (suspected) exposure to COVID-19; Z91.018 Allergy to other foods; Z79.84 Long term (current) use of oral hypoglycemic drugs; Z79.899 Other long term (current) drug therapy; Z68.38 Body mass index [BMI] 38.0-38.9, adult
CPT/HCPCS: 80053; 80061; 84436; 84439; 85025; 86592

== ENCOUNTER 2023-10-02 19:45 | Emergency (ER) | payer MEDICARE ==
[~2023-10-02] VITALS: Ht 182.9 cm; Wt 127.3 kg
[~2023-10-02 19:45] MED LIST changes: -DIVA-111 PO; +DIVA-112 PO; -OLAN10 PO; +OLAN10TA74 PO; -OLAN5TAB52 PO
[2023-10-02 20:02] VITALS: BP 129/64; PULSE 128; RESP 16; TEMP 98.8
== END 2023-10-02 21:54 | disposition left against medical advice (07) ==
LOC: EMS 19:45
DX: Z76.0 Encounter for issue of repeat prescription (principal); Z53.21 Procedure and treatment not carried out due to patient leaving prior to being seen by health care provider
CPT/HCPCS: 99281; Z7502

== ENCOUNTER 2023-12-18 13:40 | Emergency (ER) | payer MEDICARE ==
[~2023-12-18] VITALS: Ht 182.9 cm; Wt 131.8 kg
[2023-12-18 13:57] VITALS: BP 148/92; PULSE 109; RESP 20; TEMP 98.3
[2023-12-18 14:37] LABS: BASOPHILS % (AUTO) 0.7 % (0.0-2.0); EOSINOPHILS % (AUTO) 3.1 % (1.0-6.0); HEMOGLOBIN 13.7 g/dL (13.5-17.5); LYMPHOCYTES # (AUTO) 2.9 K/uL (1.0-4.8); MEAN CORPUSCULAR HEMOGLOBIN 30.8 pg (26.0-34.0); MEAN CORPUSCULAR HGB CONC 34.2 G/dL (31.0-37.0); MEAN CORPUSCULAR VOLUME 90 fL (80-100); NEUTROPHILS # (AUTO) 8.3 K/uL (1.8-7.7); NEUTROPHILS % (AUTO) 65.2 % (40.0-70.0); PLATELET COUNT (AUTO) 351 K/uL (150-450); RED BLOOD CELL COUNT(AUTO) 4.44 MIL/uL (4.50-5.90); RED CELL DISTRIBUTION WIDTH 14.9 % (11.5-14.5); WHITE BLOOD COUNT (AUTO) 12.7 K/uL (4.5-11.0)
[2023-12-18 14:49] LABS: ANION GAP 13 mmol/L (8-16); CALCIUM, TOTAL 8.5 mg/dL (8.8-10.5); CARBON DIOXIDE 25 mmol/L (22-29); CHLORIDE 93 mmol/L (98-107); CREATININE 0.87 mg/dL (0.60-1.30); GLOMERULAR FILTR. RATE CALC > 60 mL/min (>60); GLUCOSE,RANDOM 137 mg/dL (70-110); POTASSIUM 3.3 mmol/L (3.5-5.1); SODIUM SERUM 131 mmol/L (136-145); UREA NITROGEN, BLOOD 9 mg/dL (7-18)
[2023-12-18 14:53] LABS: ALCOHOL, BLOOD (SERUM) < 3 mg/dL (0-10)
[2023-12-18 14:55] LABS: ALANINE AMINOTRANSFERASE 41 U/L (12-78); ALBUMIN 3.6 g/dL (3.4-5.0); ALKALINE PHOSPHATASE 71 U/L (46-116); ASPARTATE AMINOTRANSFERASE 47 U/L (15-37); BILIRUBIN,TOTAL 0.5 mg/dL (0.1-1.0); TOTAL PROTEIN, SERUM 8.3 g/dL (6.4-8.2)
[2023-12-18] MEDS: OLANZapine 10 MG TABLET PO ONE (16:06)
[2023-12-18] MEDS ORDERED: OLAN10TA74 PO (16:15)
== END 2023-12-18 16:22 | disposition home or self-care (01) ==
LOC: EMS 13:40
DX: R44.0 Auditory hallucinations (principal); E11.9 Type 2 diabetes mellitus without complications; I10 Essential (primary) hypertension; F41.9 Anxiety disorder, unspecified; F31.9 Bipolar disorder, unspecified; F17.210 Nicotine dependence, cigarettes, uncomplicated; F12.90 Cannabis use, unspecified, uncomplicated; F14.90 Cocaine use, unspecified, uncomplicated; F15.90 Other stimulant use, unspecified, uncomplicated; Z91.018 Allergy to other foods
CPT/HCPCS: 99283; 80053; 85025; 36415; G0480

== ENCOUNTER 2024-01-02 05:32 | Emergency (ER) | payer MEDICARE, MEDICAID ==
[~2024-01-02] VITALS: Ht 182.9 cm; Wt 125.5 kg
[2024-01-02 05:48] VITALS: TEMP 98.2
[2024-01-02 06:10] LABS: GLUCOMETER DEV NAME(LOC) ER.6; GLUCOSE,POINT OF CARE 115 MG/DL (70-110)
[2024-01-02 06:20] LABS: BASOPHILS % (AUTO) 0.7 % (0.0-2.0); EOSINOPHILS % (AUTO) 2.5 % (1.0-6.0); HEMOGLOBIN 14.5 g/dL (13.5-17.5); LYMPHOCYTES # (AUTO) 5.2 K/uL (1.0-4.8); LYMPHOCYTES % (AUTO) 35.9 % (22.0-44.0); MEAN CORPUSCULAR HEMOGLOBIN 30.4 pg (26.0-34.0); MEAN CORPUSCULAR HGB CONC 33.6 G/dL (31.0-37.0); MEAN CORPUSCULAR VOLUME 91 fL (80-100); MONOCYTES % (AUTO) 6.8 % (2.0-9.0); NEUTROPHILS # (AUTO) 7.9 K/uL (1.8-7.7); NEUTROPHILS % (AUTO) 54.1 % (40.0-70.0); PLATELET COUNT (AUTO) 452 K/uL (150-450); RED BLOOD CELL COUNT(AUTO) 4.75 MIL/uL (4.50-5.90); RED CELL DISTRIBUTION WIDTH 15.1 % (11.5-14.5); WHITE BLOOD COUNT (AUTO) 14.6 K/uL (4.5-11.0)
[2024-01-02 06:28] LABS: ANION GAP 6 mmol/L (8-16); CALCIUM, TOTAL 8.8 mg/dL (8.8-10.5); CARBON DIOXIDE 35 mmol/L (22-29); CHLORIDE 98 mmol/L (98-107); GLOMERULAR FILTR. RATE CALC > 60 mL/min (>60); GLUCOSE,RANDOM 118 mg/dL (70-110); POTASSIUM 3.9 mmol/L (3.5-5.1); SODIUM SERUM 139 mmol/L (136-145); UREA NITROGEN, BLOOD 16 mg/dL (7-18)
[2024-01-02 06:37] LABS: ALANINE AMINOTRANSFERASE 41 U/L (12-78); ALBUMIN 3.5 g/dL (3.4-5.0); ALKALINE PHOSPHATASE 81 U/L (46-116); ASPARTATE AMINOTRANSFERASE 43 U/L (15-37); BILIRUBIN,TOTAL 0.4 mg/dL (0.1-1.0); TOTAL PROTEIN, SERUM 8.2 g/dL (6.4-8.2)
[2024-01-02 06:51] LABS: ALCOHOL, BLOOD (SERUM) < 3 mg/dL (0-10)
[2024-01-02] MEDS: OLANZapine 10 MG TABLET PO ONE (08:29)
[2024-01-02 08:45] LABS: COVID AG,FIA SOURCE NASAL SWAB
[2024-01-02 09:28] LABS: SARS-COV2 (COVID) ANTIGEN,FIA Negative (Negative)
[2024-01-02 09:35] LABS: PH,URINE DRUG SCREEN 7.5 (5.0-8.0)
[2024-01-02 09:42] LABS: ALCOHOL, URINE DRUG SCREEN NEGATIVE (NEGATIVE); AMPHET/METH SCREEN,URINE NEGATIVE (NEGATIVE); BARBITURATE SCREEN, URINE NEGATIVE (NEGATIVE); BENZODIAZEPINES SCREEN,URINE NEGATIVE (NEGATIVE); CANNABINOID SCREEN,URINE NEGATIVE (NEGATIVE); COCAINE SCREEN,URINE NEGATIVE (NEGATIVE); METHADONE SCREEN, URINE NEGATIVE (NEGATIVE); OPIATE SCREEN,URINE NEGATIVE (NEGATIVE); PHENCYCLIDINE SCREEN,URINE NEGATIVE (NEGATIVE)
[2024-01-02 11:05] VITALS: BP 125/80; PULSE 98; RESP 18
== END 2024-01-02 12:59 | disposition home or self-care (01) ==
LOC: EMS 05:34
DX: F25.9 Schizoaffective disorder, unspecified (principal); F41.9 Anxiety disorder, unspecified; F31.9 Bipolar disorder, unspecified; E11.9 Type 2 diabetes mellitus without complications; I10 Essential (primary) hypertension; F17.210 Nicotine dependence, cigarettes, uncomplicated; F12.90 Cannabis use, unspecified, uncomplicated; F15.90 Other stimulant use, unspecified, uncomplicated; F14.90 Cocaine use, unspecified, uncomplicated; Z20.822 Contact with and (suspected) exposure to COVID-19
CPT/HCPCS: 99284; 87426; 80053; 82962; 85025; 36415; 80307; G0480

== ENCOUNTER 2024-01-19 02:02 | Emergency (ER) | payer MEDICARE, MEDICAID ==
[~2024-01-19] VITALS: Ht 185.4 cm; Wt 127.3 kg
[2024-01-19 03:34] LABS: PH,URINE DRUG SCREEN 5.5 (5.0-8.0)
[2024-01-19 03:39] LABS: ALCOHOL, URINE DRUG SCREEN NEGATIVE (NEGATIVE); AMPHET/METH SCREEN,URINE NEGATIVE (NEGATIVE); BARBITURATE SCREEN, URINE NEGATIVE (NEGATIVE); BENZODIAZEPINES SCREEN,URINE NEGATIVE (NEGATIVE); CANNABINOID SCREEN,URINE POSITIVE (NEGATIVE); COCAINE SCREEN,URINE NEGATIVE (NEGATIVE); METHADONE SCREEN, URINE NEGATIVE (NEGATIVE); OPIATE SCREEN,URINE NEGATIVE (NEGATIVE); PHENCYCLIDINE SCREEN,URINE NEGATIVE (NEGATIVE)
[2024-01-19 06:45] VITALS: BP 124/80; PULSE 90; RESP 16; TEMP 98.5
== END 2024-01-19 07:45 | disposition left against medical advice (07) ==
LOC: EMS 02:04
DX: R45.851 Suicidal ideations (principal); Z53.21 Procedure and treatment not carried out due to patient leaving prior to being seen by health care provider
CPT/HCPCS: 80307

== ENCOUNTER 2024-02-02 19:05 | Emergency (ER) | payer SELFPAY ==
[~2024-02-02] VITALS: Ht 185.4 cm; Wt 126.0 kg
[~2024-02-02 19:05] MED LIST changes: -MIRT-89 PO
[2024-02-02 19:09] VITALS: TEMP 98.3
[2024-02-02 23:10] VITALS: BP 139/79; PULSE 99; RESP 16
== END 2024-02-03 00:12 | disposition left against medical advice (07) ==
LOC: EMS 19:06
DX: F41.9 Anxiety disorder, unspecified (principal); E11.9 Type 2 diabetes mellitus without complications; F17.210 Nicotine dependence, cigarettes, uncomplicated; F14.90 Cocaine use, unspecified, uncomplicated; F12.90 Cannabis use, unspecified, uncomplicated; Z91.018 Allergy to other foods; Z98.890 Other specified postprocedural states
CPT/HCPCS: 99283; Z7502

== ENCOUNTER 2024-05-07 20:53 | Emergency (ER) | payer MEDICARE, MEDICAID ==
[~2024-05-07] VITALS: Ht 182.9 cm; Wt 131.4 kg
[2024-05-07 20:59] VITALS: TEMP 98.4
[2024-05-07 22:43] LABS: BASOPHILS % (AUTO) 0.6 % (0.0-2.0); EOSINOPHILS % (AUTO) 5.6 % (1.0-6.0); HEMATOCRIT 39.9 % (41-53); HEMOGLOBIN 13.4 g/dL (13.5-17.5); LYMPHOCYTES # (AUTO) 4.3 K/uL (1.0-4.8); LYMPHOCYTES % (AUTO) 24.5 % (22.0-44.0); MEAN CORPUSCULAR HEMOGLOBIN 30.3 pg (26.0-34.0); MEAN CORPUSCULAR HGB CONC 33.6 G/dL (31.0-37.0); MEAN CORPUSCULAR VOLUME 90 fL (80-100); MONOCYTES # (AUTO) 1.2 K/uL (0.1-1.0); NEUTROPHILS # (AUTO) 11.1 K/uL (1.8-7.7); NEUTROPHILS % (AUTO) 62.3 % (40.0-70.0); PLATELET COUNT (AUTO) 374 K/uL (150-450); RED BLOOD CELL COUNT(AUTO) 4.43 MIL/uL (4.50-5.90); RED CELL DISTRIBUTION WIDTH 14.1 % (11.5-14.5); WHITE BLOOD COUNT (AUTO) 17.7 K/uL (4.5-11.0)
[2024-05-07 23:02] LABS: ANION GAP 10 mmol/L (8-16); CALCIUM, TOTAL 7.8 mg/dL (8.8-10.5); CARBON DIOXIDE 29 mmol/L (22-29); CHLORIDE 97 mmol/L (98-107); CREATININE 0.95 mg/dL (0.60-1.30); GLOMERULAR FILTR. RATE CALC > 60 mL/min (>60); GLUCOSE,RANDOM 164 mg/dL (70-110); POTASSIUM 3.8 mmol/L (3.5-5.1); SODIUM SERUM 135 mmol/L (136-145); UREA NITROGEN, BLOOD 7 mg/dL (7-18)
[2024-05-07 23:04] LABS: ALCOHOL, BLOOD (SERUM) < 3 mg/dL (0-10)
[2024-05-07] MEDS: OLANZapine 10 MG TABLET PO ONE (23:32)
[2024-05-07] MEDS: DIVALPROEX SODIUM 500 MG ER TABLET PO ONE (23:33)
[2024-05-07] MEDS: MIRTAZAPINE 15 MG TABLET PO ONE (23:38)
[2024-05-07 23:57] VITALS: BP 135/71; PULSE 91; RESP 16; O2SAT 95
== END 2024-05-07 23:58 | disposition home or self-care (01) ==
LOC: EMS 20:53
DX: F25.0 Schizoaffective disorder, bipolar type (principal); E11.9 Type 2 diabetes mellitus without complications; F17.210 Nicotine dependence, cigarettes, uncomplicated; F12.90 Cannabis use, unspecified, uncomplicated; Z98.890 Other specified postprocedural states; Z88.8 Allergy status to other drugs, medicaments and biological substances
CPT/HCPCS: 99284; 80048; 82962; 85025; 36415; G0480

== ENCOUNTER 2024-08-22 00:33 | Emergency (ER) | payer MEDICARE, MEDICAID ==
[~2024-08-22] VITALS: Ht 182.9 cm; Wt 136.4 kg
[2024-08-22 00:39] VITALS: BP 125/86; PULSE 102; RESP 16; TEMP 99; O2SAT 96
[2024-08-22] MEDS ORDERED: MIRT-149 PO (00:45)
== END 2024-08-22 03:00 | disposition left against medical advice (07) ==
LOC: EMS 00:39
DX: R45.851 Suicidal ideations (principal); R44.0 Auditory hallucinations; Z53.21 Procedure and treatment not carried out due to patient leaving prior to being seen by health care provider
CPT/HCPCS: 82962

== ENCOUNTER 2024-10-01 17:58 | Emergency (ER) | payer MEDICARE, MEDICAID ==
[~2024-10-01] VITALS: Ht 182.9 cm; Wt 125.0 kg
[~2024-10-01 17:58] MED LIST changes: +MIRT-149 PO
[2024-10-01 18:16] VITALS: BP 127/91; PULSE 111; RESP 18; TEMP 98.4; O2SAT 98
[2024-10-01] MEDS ORDERED: VALP250S27 PO (18:22)
[2024-10-01 19:22] LABS: BASOPHILS % (AUTO) 0.5 % (0.0-2.0); EOSINOPHILS % (AUTO) 4.2 % (1.0-6.0); HEMATOCRIT 43.6 % (41-53); HEMOGLOBIN 14.7 g/dL (13.5-17.5); LYMPHOCYTES # (AUTO) 2.7 K/uL (1.0-4.8); LYMPHOCYTES % (AUTO) 20.8 % (22.0-44.0); MEAN CORPUSCULAR HEMOGLOBIN 30.9 pg (26.0-34.0); MEAN CORPUSCULAR HGB CONC 33.6 G/dL (31.0-37.0); MEAN CORPUSCULAR VOLUME 92 fL (80-100); MONOCYTES # (AUTO) 1.1 K/uL (0.1-1.0); MONOCYTES % (AUTO) 8.5 % (2.0-9.0); NEUTROPHILS # (AUTO) 8.6 K/uL (1.8-7.7); PLATELET COUNT (AUTO) 388 K/uL (150-450); RED BLOOD CELL COUNT(AUTO) 4.74 MIL/uL (4.50-5.90); RED CELL DISTRIBUTION WIDTH 15.9 % (11.5-14.5); WHITE BLOOD COUNT (AUTO) 13.1 K/uL (4.5-11.0)
[2024-10-01 19:32] LABS: ANION GAP 6 mmol/L (8-16); CALCIUM, TOTAL 8.6 mg/dL (8.8-10.5); CARBON DIOXIDE 32 mmol/L (22-29); CHLORIDE 99 mmol/L (98-107); CREATININE 0.87 mg/dL (0.60-1.30); GLOMERULAR FILTR. RATE CALC > 60 mL/min (>60); GLUCOSE,RANDOM 107 mg/dL (70-110); POTASSIUM 3.7 mmol/L (3.5-5.1); SODIUM SERUM 137 mmol/L (136-145); UREA NITROGEN, BLOOD 8 mg/dL (7-18)
[2024-10-01 19:43] LABS: ALCOHOL, BLOOD (SERUM) < 3 mg/dL (0-10)
[2024-10-01] MEDS ORDERED: DIVA-85 PO (22:33)
[2024-10-01] MEDS ORDERED: OLAN10TA74 PO (22:33)
[2024-10-02] MEDS: OLANZapine 5 MG TABLET PO ONE (00:16)
[2024-10-02] MEDS: LORazepam 2 MG TABLET PO ONE (00:16)
== END 2024-10-02 00:31 | disposition home or self-care (01) ==
LOC: EMS 17:58
DX: F25.0 Schizoaffective disorder, bipolar type (principal); E11.9 Type 2 diabetes mellitus without complications; F17.210 Nicotine dependence, cigarettes, uncomplicated; F15.90 Other stimulant use, unspecified, uncomplicated; F12.90 Cannabis use, unspecified, uncomplicated; Z79.899 Other long term (current) drug therapy; Z91.148 Patient's other noncompliance with medication regimen for other reason
CPT/HCPCS: 99284; 80048; 82962; 85025; 36415; G0480